=== PATIENT | female | born 1990 | race Caucasian/White ===

== ENCOUNTER 2016-10-22 10:48 | Emergency (ER) | payer SELFPAY ==
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
== END 2016-10-22 14:40 | disposition home or self-care (01) ==
LOC: ER 10:48
DX: S01.91XA Laceration without foreign body of unspecified part of head, initial encounter (principal); M25.571 Pain in right ankle and joints of right foot; M25.511 Pain in right shoulder; R10.9 Unspecified abdominal pain; Z79.899 Other long term (current) drug therapy; V43.52XA Car driver injured in collision with other type car in traffic accident, initial encounter